=== PATIENT | female | born 1940 | race Caucasian/White ===

== ENCOUNTER → 2016-11-26 | Outpatient (CLI) | payer MEDICARE ==
[~2016-11-26] MED LIST: ASPI1TAB PO; COLA100C3 PO; CRES5TAB PO; LEVO50TA45 PO; LOSA100T36 PO; OMEGA XL PO; PANT40TA2 PO; PERC5TAB6 PO; TRIA37.5 PO; TYLE500T78 PO; [UNRECOGNIZED DRUG - CODE] PO; [UNRECOGNIZED DRUG - OTHER] PO
[2016-11-26 13:38] LABS: BASO % 0.4 % (0.0-1.0); EOS # 0.4 K/mm3 (0.0-0.50); EOS % 4.3 % (0.0-3.0); LARGE UNSTAINED CELL # 0.1 K/mm3 (0.0-0.4); LARGE UNSTAINED CELL % 1.5 % (0.0-4.0); LYMPH # 2.6 K/mm3 (1.5-4.5); LYMPH % 30.3 % (24.0-44.0); MEAN CORPUSCULAR HEMOGLOBIN 31.3 pg (27.0-33.0); MEAN CORPUSCULAR HGB CONC 34.4 g/dl (32.0-36.5); MEAN CORPUSCULAR VOLUME 90.8 fl (80.0-96.0); MONO # 0.5 K/mm3 (0.0-0.8); MONO % 5.7 % (0.0-5.0); NEUTROPHILS % 57.7 % (36.0-66.0); PLATELET COUNT, AUTOMATED 300 k/mm3 (150-450); RED CELL DISTRIBUTION WIDTH 13.3 % (11.5-14.5); WHITE BLOOD COUNT 8.7 K/mm3 (4.0-10.0)
[2016-11-26 13:52] LABS: ALBUMIN/GLOBULIN RATIO 1.33 (1.00-1.93); BILIRUBIN,TOTAL 0.7 MG/DL (0.2-1.0); CALCIUM LEVEL 9.1 MG/DL (8.8-10.2); CREATININE FOR GFR 1.25 MG/DL (0.55-1.02); FREE T4 1.01 NG/DL (0.76-1.46); GLOMERULAR FILTRATION RATE 44.6 (>39); POTASSIUM SERUM 3.9 MEQ/L (3.5-5.1)
[2016-11-26 15:51] LABS: FOLATE > 24.0 NG/ML; VITAMIN B12 LEVEL 691 PG/ML
== END ==
LOC: M SMT 09:21
PROVIDERS: ATTEND Family Medicine
DX: D64.9 Anemia, unspecified (principal); E03.9 Hypothyroidism, unspecified; I10 Essential (primary) hypertension; K21.9 Gastro-esophageal reflux disease without esophagitis; E78.00 Pure hypercholesterolemia, unspecified

== ENCOUNTER → 2016-12-17 | Outpatient (REF) | payer MEDICARE | LOC: M LAB REF 17:01 | PROVIDERS: ATTEND Physician Assistant Medical | DX: R10.30 Lower abdominal pain, unspecified (principal) ==

== ENCOUNTER → 2017-02-26 | Outpatient (CLI) | payer MEDICARE ==
[~2017-02-26] MED LIST changes: +AMLO5TAB2 PO; +CENTTAB PO; -COLA100C3 PO; +COLA100C5 PO; +INDA125TA PO; +LEVO75TA4 PO; +PERC5TAB12 PO; -PERC5TAB6 PO; +POTA10TA16 PO
[2017-02-26 17:44] LABS: FREE T4 0.98 NG/DL (0.76-1.46)
== END ==
LOC: M SMT 12:03
PROVIDERS: ATTEND Physician Assistant
DX: E03.9 Hypothyroidism, unspecified (principal)

== ENCOUNTER 2017-04-15 07:29 | Outpatient (CLI) | payer MEDICARE ==
[~2017-04-15] VITALS: Ht 152.4 cm; Wt 59.0 kg
[~2017-04-15 07:29] MED LIST changes: +LR 1,000 ML IV SCH
[2017-04-15] MEDS ORDERED: LIDOCAINE 2% INJ 100 MG/5 ML SDV (FOR ANES.) As Ordered ONE (08:26)
[2017-04-15] MEDS ORDERED: PROPOFOL 200 MG/20 ML VIAL As Ordered ONE (08:26)
[2017-04-15] MEDS ORDERED: ePHEDrine SULFATE 25 MG/5 ML(5MG/ML) SYRINGE As Ordered ONE (08:41)
--- NOTE | 2017-04-15 09:13 | ROOR ---
Patient Name: Courtney Chiu Procedure Date: 04/15/2017 8:23 AM Date of : 1940 Age: 77 Room: [facility] Gender: Female Note Status: Finalized Procedure: Colonoscopy Indications: High risk colon cancer surveillance: Personal history of non-advanced adenoma, Last colonoscopy: 2011 Providers: William Barnett MD Referring MD: Cinthia GRIMES DO Requesting Provider: Medicines: Monitored Anesthesia Care Complications: No immediate complications. Procedure: Pre-Anesthesia Assessment: - Prior to the procedure, a History and Physical was performed, and patient medications and allergies were reviewed. The patient is competent. The risks and benefits of the procedure and the sedation options and risks were discussed with the patient. All questions were answered and informed consent was obtained. Patient identification and proposed procedure were verified by the physician, the nurse and the anesthesiologist in the procedure room. Mental Status Examination: alert and oriented. Airway Examination: normal oropharyngeal airway and neck mobility. CV Examination: regular rate and rhythm. Prophylactic Antibiotics: The patient does not require prophylactic antibiotics. Prior Anticoagulants: The patient has taken no previous anticoagulant or antiplatelet agents. ASA Grade Assessment: II - A patient with mild systemic disease. After reviewing the risks and benefits, the patient was deemed in satisfactory condition to undergo the procedure. The anesthesia plan was to use monitored anesthesia care (MAC). Immediately prior to administration of medications, the patient was re-assessed for adequacy to receive sedatives. The heart rate, respiratory rate, oxygen saturations, blood pressure, adequacy of pulmonary ventilation, and response to care were monitored throughout the procedure. The physical status of the patient was re-assessed after the procedure. The Colonoscope was introduced through the anus and advanced to the cecum, identified by appendiceal orifice and ileocecal valve. The colonoscopy was performed without difficulty. The patient tolerated the procedure well. The quality of the bowel preparation was excellent. Findings: The perianal and digital rectal examinations were normal. A 4 mm polyp was found at 25 cm proximal to the anus. The polyp was sessile. The polyp was removed with a piecemeal technique using a hot biopsy forceps. Resection and retrieval were complete. The exam was otherwise without abnormality. Impression: - One 4 mm polyp at 25 cm proximal to the anus, removed piecemeal using a hot biopsy forceps. Resected and retrieved. - The examination was otherwise normal. Recommendation: - Discharge patient to home. - Resume previous diet. - Continue present medications. - Await pathology results. - Telephone endoscopist for pathology results in 1 week. William Barnett MD 04/15/2017 9:12:56 AM Number of Addenda: 0 Note Initiated On: 04/15/2017 8:23 AM Estimated Blood Loss: Estimated blood loss: none.
[2017-04-15 09:36] VITALS: BP 117/65
== END 2017-04-15 09:40 | disposition home or self-care (01) ==
LOC: M OPP 07:29
PROVIDERS: ATTEND Surgery
DX: Z12.11 Encounter for screening for malignant neoplasm of colon (principal); Z86.010 Personal history of colon polyps; D12.5 Benign neoplasm of sigmoid colon; R00.2 Palpitations; I10 Essential (primary) hypertension; E03.9 Hypothyroidism, unspecified; E78.5 Hyperlipidemia, unspecified; R12 Heartburn; K21.9 Gastro-esophageal reflux disease without esophagitis; M19.90 Unspecified osteoarthritis, unspecified site; M48.00 Spinal stenosis, site unspecified; M41.9 Scoliosis, unspecified; G43.909 Migraine, unspecified, not intractable, without status migrainosus; R06.83 Snoring; R31.9 Hematuria, unspecified; Z87.891 Personal history of nicotine dependence; Z79.82 Long term (current) use of aspirin; Z79.899 Other long term (current) drug therapy; Z80.0 Family history of malignant neoplasm of digestive organs

== ENCOUNTER → 2017-08-28 | Outpatient (REF) | payer MEDICARE ==
[2017-08-28 15:14] LABS: APPEARANCE, URINE HAZY (CLEAR); BACTERIA, URINE AUTO NEGATIVE (NEGATIVE); BILIRUBIN, URINE AUTO NEGATIVE (NEGATIVE); BLOOD, URINE BLOOD NEGATIVE (NEGATIVE); COLOR, URINE AMBER (YELLOW); GLUCOSE, URINE (UA) AUTO NEGATIVE (NEGATIVE); KETONE, URINE AUTO NEGATIVE (NEGATIVE); LEUKOCYTE ESTERASE, URINE AUTO NEGATIVE (NEGATIVE); MUCUS, URINE SMALL (NEGATIVE); NITRITE, URINE AUTO NEGATIVE (NEGATIVE); PROTEIN, URINE AUTO NEGATIVE (NEGATIVE); RBC, URINE AUTO 9 /HPF (0-3); SPECIFIC GRAVITY URINE AUTO 1.023 (1.002-1.035); SQUAMOUS EPITHELIAL CELL UR AU 0 /HPF (0-6); UROBILINOGEN, URINE AUTO 0.2 mg/dL (0.0-2.0); WBC, URINE AUTO 1 /HPF (0-3)
== END ==
LOC: M LAB REF 13:24
DX: R30.0 Dysuria (principal); Z00.01 Encounter for general adult medical examination with abnormal findings
CPT/HCPCS: 81001

== ENCOUNTER 2017-11-23 23:08 | Observation (INO) | payer MEDICARE ==
[2017-11-23] MEDS: MECLIZINE 25 MG TABLET PO (23:57)
[2017-11-24 00:16] LABS: BASO # 0.1 10^3/uL (0.0-0.2); BASO % 0.6 % (0.0-1.0); EOS # 0.3 10^3/uL (0.0-0.50); EOS % 3.4 % (0.0-3.0); HEMATOCRIT 36.5 % (36.0-47.0); HEMOGLOBIN 12.1 g/dl (12.0-15.5); IMMATURE GRANULOCYTE % 0.1 % (0-3.0); LYMPH # 2.2 10^3/uL (1.5-4.5); LYMPH % 24.9 % (24.0-44.0); MEAN CORPUSCULAR HEMOGLOBIN 29.9 pg (27.0-33.0); MEAN CORPUSCULAR HGB CONC 33.2 g/dl (32.0-36.5); MEAN CORPUSCULAR VOLUME 90.1 fl (80.0-96.0); MONO # 0.7 10^3/uL (0.0-0.8); MONO % 7.6 % (0.0-5.0); NEUTROPHILS # 5.6 10^3/uL (1.8-7.7); NEUTROPHILS % 63.4 % (36.0-66.0); PLATELET COUNT, AUTOMATED 256 10^3/uL (150-450); RED BLOOD COUNT 4.05 10^6/uL (4.00-5.40); RED CELL DISTRIBUTION WIDTH 12.6 % (11.5-14.5); WHITE BLOOD COUNT 8.9 10^3/uL (4.0-10.0)
[2017-11-24 00:27] LABS: INR 0.94; PROTHROMBIN TIME 12.6 SECONDS (12.4-14.5)
[2017-11-24 00:28] LABS: PARTIAL THROMBOPLASTIN TIME 34.8 SECONDS (26.8-37.9)
[2017-11-24 00:49] LABS: ALT/SGPT 25 U/L (12-78); ANION GAP 8 MEQ/L (8-16); AST/SGOT 24 U/L (7-37); BILIRUBIN,DIRECT < 0.1 MG/DL (0.0-0.2); BLOOD UREA NITROGEN 20 MG/DL (7-18); CALCIUM LEVEL 9.2 MG/DL (8.8-10.2); CARBON DIOXIDE LEVEL 31 MEQ/L (21-32); CHLORIDE LEVEL 103 MEQ/L (98-107); CREATININE FOR GFR 0.96 MG/DL (0.55-1.30); GLOMERULAR FILTRATION RATE > 60.0 (>39); GLUCOSE, FASTING 158 MG/DL (70-100); PHOSPHORUS LEVEL 3.2 MG/DL (2.5-4.9); POTASSIUM SERUM 3.6 MEQ/L (3.5-5.1); SODIUM LEVEL 142 MEQ/L (136-145); TROPONIN I 0.02 NG/ML (< 0.10)
[2017-11-24 00:54] LABS: ALBUMIN/GLOBULIN RATIO 1.29 (1.00-1.93); ALKALINE PHOSPHATASE 68 U/L (45-117); BILIRUBIN,TOTAL 0.3 MG/DL (0.2-1.0); CK-MB VALUE MASS < 1.0 NG/ML (<3.6); CPK CREATINE PHOSPHOKINASE 121 U/L (26-192); FREE T4 0.93 NG/DL (0.76-1.46); MB/CK RELATIVE INDEX 0.82 (< OR =4); TOTAL PROTEIN 7.1 GM/DL (6.4-8.2)
[2017-11-24] MEDS: MECLIZINE 25 MG TABLET PO (01:45)
[2017-11-24] MEDS: LORazepam 2 MG/ML VIAL (J2060) IV (04:18)
[2017-11-24] MEDS: DIVALPROEX 500MG *ER* TAB PO ×2 (05:08→09:00)
[2017-11-24] MEDS ORDERED: ONDANSETRON 4MG/2ML VIAL (J2405) IV (05:45)
[2017-11-24] MEDS ORDERED: MECLIZINE 25 MG TABLET PO (05:45)
[2017-11-24] MEDS ORDERED: LORazepam 2 MG/ML VIAL (J2060) IV (05:45)
[2017-11-24] MEDS: LEVOTHYROXINE 50MCG TABLET (0.05MG) PO (06:30)
[2017-11-24 06:34] LABS: BASO % 0.4 % (0.0-1.0); EOS # 0.2 10^3/uL (0.0-0.50); EOS % 2.6 % (0.0-3.0); HEMATOCRIT 35.9 % (36.0-47.0); HEMOGLOBIN 12.2 g/dl (12.0-15.5); IMMATURE GRANULOCYTE % 0.1 % (0-3.0); LYMPH # 3.1 10^3/uL (1.5-4.5); MEAN CORPUSCULAR VOLUME 88.4 fl (80.0-96.0); MONO # 0.7 10^3/uL (0.0-0.8); MONO % 7.4 % (0.0-5.0); NEUTROPHILS # 5.3 10^3/uL (1.8-7.7); NEUTROPHILS % 56.5 % (36.0-66.0); PLATELET COUNT, AUTOMATED 266 10^3/uL (150-450); RED BLOOD COUNT 4.06 10^6/uL (4.00-5.40); RED CELL DISTRIBUTION WIDTH 12.6 % (11.5-14.5); WHITE BLOOD COUNT 9.4 10^3/uL (4.0-10.0)
[2017-11-24 06:56] LABS: ANION GAP 7 MEQ/L (8-16); BLOOD UREA NITROGEN 17 MG/DL (7-18); CALCIUM LEVEL 9.4 MG/DL (8.8-10.2); CARBON DIOXIDE LEVEL 30 MEQ/L (21-32); CHLORIDE LEVEL 106 MEQ/L (98-107); CREATININE FOR GFR 0.85 MG/DL (0.55-1.30); GLOMERULAR FILTRATION RATE > 60.0 (>39); GLUCOSE, FASTING 90 MG/DL (70-100); POTASSIUM SERUM 3.4 MEQ/L (3.5-5.1); SODIUM LEVEL 143 MEQ/L (136-145)
[2017-11-24] MEDS: amLODIPine 5 MG TAB PO (09:07)
[2017-11-24] MEDS: LOSARTAN 50 MG TAB PO (09:08)
[2017-11-24] MEDS: POTASSIUM CHLORIDE 10 MEQ SR TABLET PO (09:08)
[2017-11-24] MEDS: DOCUSATE SODIUM 100 MG CAP PO (09:09)
[2017-11-24] MEDS: PANTOPRAZOLE 40MG TAB (PROTONIX) PO (09:09)
[2017-11-24] MEDS: INDAPAMIDE 1.25MG TABLET PO (09:09)
[2017-11-24] MEDS: ROSUVASTATIN 10 MG TAB (CRESTOR) PO (20:57)
[2017-11-24] MEDS: ASPIRIN 81 MG ENTERIC TAB PO (20:57)
[2017-11-25 04:25] LABS: BASO # 0.1 10^3/uL (0.0-0.2); BASO % 0.9 % (0.0-1.0); EOS # 0.7 10^3/uL (0.0-0.50); EOS % 8.1 % (0.0-3.0); HEMATOCRIT 36.2 % (36.0-47.0); HEMOGLOBIN 12.2 g/dl (12.0-15.5); IMMATURE GRANULOCYTE % 0.2 % (0-3.0); LYMPH # 3.4 10^3/uL (1.5-4.5); LYMPH % 41.8 % (24.0-44.0); MEAN CORPUSCULAR HEMOGLOBIN 29.9 pg (27.0-33.0); MEAN CORPUSCULAR HGB CONC 33.7 g/dl (32.0-36.5); MEAN CORPUSCULAR VOLUME 88.7 fl (80.0-96.0); MONO # 0.8 10^3/uL (0.0-0.8); MONO % 9.4 % (0.0-5.0); NEUTROPHILS # 3.2 10^3/uL (1.8-7.7); NEUTROPHILS % 39.6 % (36.0-66.0); PLATELET COUNT, AUTOMATED 280 10^3/uL (150-450); RED BLOOD COUNT 4.08 10^6/uL (4.00-5.40); RED CELL DISTRIBUTION WIDTH 12.8 % (11.5-14.5)
[2017-11-25 04:37] LABS: ANION GAP 7 MEQ/L (8-16); BLOOD UREA NITROGEN 15 MG/DL (7-18); CALCIUM LEVEL 8.8 MG/DL (8.8-10.2); CARBON DIOXIDE LEVEL 32 MEQ/L (21-32); CHLORIDE LEVEL 104 MEQ/L (98-107); CREATININE FOR GFR 1.03 MG/DL (0.55-1.30); GLOMERULAR FILTRATION RATE 55.6 (>39); GLUCOSE, FASTING 113 MG/DL (70-100); POTASSIUM SERUM 3.4 MEQ/L (3.5-5.1); SODIUM LEVEL 143 MEQ/L (136-145)
[2017-11-25] MEDS: LEVOTHYROXINE 75MCG TABLET (0.075MG) PO (06:06)
[2017-11-25] MEDS: DOCUSATE SODIUM 100 MG CAP PO (08:51)
[2017-11-25] MEDS: amLODIPine 5 MG TAB PO (08:51)
[2017-11-25] MEDS: INDAPAMIDE 1.25MG TABLET PO (08:51)
[2017-11-25] MEDS: POTASSIUM CHLORIDE 10 MEQ SR TABLET PO (08:52)
[2017-11-25] MEDS: PANTOPRAZOLE 40MG TAB (PROTONIX) PO (08:52)
[2017-11-25] MEDS ORDERED: LOSARTAN 50 MG TAB PO (21:00)
== END 2017-11-25 11:19 | disposition home or self-care (01) ==
LOC: M ED 23:08 → M ED INP 23:09 → M ICU 11-24 07:46
DX: R42 Dizziness and giddiness (principal); I10 Essential (primary) hypertension; E78.00 Pure hypercholesterolemia, unspecified; K21.9 Gastro-esophageal reflux disease without esophagitis; E03.9 Hypothyroidism, unspecified; I65.23 Occlusion and stenosis of bilateral carotid arteries; Z79.82 Long term (current) use of aspirin; Z79.899 Other long term (current) drug therapy; Z87.891 Personal history of nicotine dependence
CPT/HCPCS: J2060

== ENCOUNTER 2018-03-11 19:52 | Emergency (ER) | payer MEDICARE ==
[2018-03-11 22:22] LABS: BASO # 0.1 10^3/uL (0.0-0.2); BASO % 0.4 % (0.0-1.0); EOS # 0.2 10^3/uL (0.0-0.50); EOS % 1.8 % (0.0-3.0); HEMATOCRIT 35.8 % (36.0-47.0); HEMOGLOBIN 12.2 g/dl (12.0-15.5); IMMATURE GRANULOCYTE % 0.3 % (0-3.0); LYMPH # 3.4 10^3/uL (1.5-4.5); LYMPH % 28.9 % (24.0-44.0); MEAN CORPUSCULAR HGB CONC 34.1 g/dl (32.0-36.5); MEAN CORPUSCULAR VOLUME 88.2 fl (80.0-96.0); MONO # 0.9 10^3/uL (0.0-0.8); MONO % 7.7 % (0.0-5.0); NEUTROPHILS # 7.1 10^3/uL (1.8-7.7); NEUTROPHILS % 60.9 % (36.0-66.0); PLATELET COUNT, AUTOMATED 308 10^3/uL (150-450); RED BLOOD COUNT 4.06 10^6/uL (4.00-5.40); RED CELL DISTRIBUTION WIDTH 12.7 % (11.5-14.5); WHITE BLOOD COUNT 11.6 10^3/uL (4.0-10.0)
[2018-03-11 22:39] LABS: D-DIMER QUANT 404.4 ng/ml (<500)
[2018-03-11 22:46] LABS: ALBUMIN 4.2 GM/DL (3.2-5.2); ALBUMIN/GLOBULIN RATIO 1.27 (1.00-1.93); ALKALINE PHOSPHATASE 65 U/L (45-117); ALT/SGPT 28 U/L (12-78); ANION GAP 9 MEQ/L (8-16); AST/SGOT 21 U/L (7-37); BILIRUBIN,DIRECT 0.1 MG/DL (0.0-0.2); BILIRUBIN,TOTAL 0.5 MG/DL (0.2-1.0); BLOOD UREA NITROGEN 15 MG/DL (7-18); CALCIUM LEVEL 9.7 MG/DL (8.8-10.2); CARBON DIOXIDE LEVEL 31 MEQ/L (21-32); CHLORIDE LEVEL 99 MEQ/L (98-107); CREATININE FOR GFR 0.96 MG/DL (0.55-1.30); GLOMERULAR FILTRATION RATE > 60.0 (>39); GLUCOSE, FASTING 90 MG/DL (70-100); NT-PRO BNP 170 PG/ML (<450); POTASSIUM SERUM 3.4 MEQ/L (3.5-5.1); SODIUM LEVEL 139 MEQ/L (136-145); TOTAL PROTEIN 7.5 GM/DL (6.4-8.2)
== END 2018-03-11 23:18 | disposition home or self-care (01) ==
LOC: M ED 19:52
DX: I10 Essential (primary) hypertension (principal); E87.6 Hypokalemia; E78.5 Hyperlipidemia, unspecified; E03.9 Hypothyroidism, unspecified; K21.9 Gastro-esophageal reflux disease without esophagitis; Z79.82 Long term (current) use of aspirin; Z87.891 Personal history of nicotine dependence
CPT/HCPCS: 93005

== ENCOUNTER → 2018-04-29 | Outpatient (CLI) | payer MEDICARE | LOC: M RAD 10:42 | DX: M48.02 Spinal stenosis, cervical region (principal); M47.812 Spondylosis without myelopathy or radiculopathy, cervical region; M79.1 Myalgia; M54.12 Radiculopathy, cervical region; M51.37 Other intervertebral disc degeneration, lumbosacral region; M46.1 Sacroiliitis, not elsewhere classified; M48.061 Spinal stenosis, lumbar region without neurogenic claudication; M54.16 Radiculopathy, lumbar region; M47.817 Spondylosis without myelopathy or radiculopathy, lumbosacral region | CPT/HCPCS: 72141 ==

== ENCOUNTER → 2018-07-02 | Outpatient (CLI) | payer MEDICARE ==
[2018-07-02 13:49] LABS: BASO # 0.1 10^3/uL (0.0-0.2); BASO % 0.6 % (0.0-1.0); EOS # 0.2 10^3/uL (0.0-0.50); HEMATOCRIT 39.4 % (36.0-47.0); HEMOGLOBIN 12.8 g/dl (12.0-15.5); IMMATURE GRANULOCYTE % 0.4 % (0-3.0); LYMPH # 3.2 10^3/uL (1.5-4.5); LYMPH % 29.8 % (24.0-44.0); MEAN CORPUSCULAR HEMOGLOBIN 30.2 pg (27.0-33.0); MEAN CORPUSCULAR HGB CONC 32.5 g/dl (32.0-36.5); MEAN CORPUSCULAR VOLUME 92.9 fl (80.0-96.0); MONO # 0.8 10^3/uL (0.0-0.8); MONO % 7.5 % (0.0-5.0); NEUTROPHILS # 6.5 10^3/uL (1.8-7.7); NEUTROPHILS % 59.7 % (36.0-66.0); PLATELET COUNT, AUTOMATED 322 10^3/uL (150-450); RED BLOOD COUNT 4.24 10^6/uL (4.00-5.40); RED CELL DISTRIBUTION WIDTH 13.1 % (11.5-14.5); WHITE BLOOD COUNT 10.9 10^3/uL (4.0-10.0)
[2018-07-02 14:21] LABS: ANION GAP 10 MEQ/L (8-16); BLOOD UREA NITROGEN 22 MG/DL (7-18); CALCIUM LEVEL 9.5 MG/DL (8.8-10.2); CARBON DIOXIDE LEVEL 29 MEQ/L (21-32); CHLORIDE LEVEL 102 MEQ/L (98-107); CHOLESTEROL LEVEL 178 MG/DL (<200); CHOLESTEROL RISK RATIO 3.358 (<5); CREATININE FOR GFR 0.95 MG/DL (0.55-1.30); FREE T4 1.19 NG/DL (0.76-1.46); GLOMERULAR FILTRATION RATE > 60.0 (>39); GLUCOSE, FASTING 83 MG/DL (70-100); HDL CHOLESTEROL 53 MG/DL (>40); LDL CHOLESTEROL 107 MG/DL (<100); NON-HDL-C 125 MG/DL; POTASSIUM SERUM 4.2 MEQ/L (3.5-5.1); SODIUM LEVEL 141 MEQ/L (136-145); TRIGLYCERIDES LEVEL 91 MG/DL (<150)
== END ==
LOC: M SMT 09:07
DX: I10 Essential (primary) hypertension (principal); E78.5 Hyperlipidemia, unspecified; E03.9 Hypothyroidism, unspecified
CPT/HCPCS: 84443

== ENCOUNTER → 2018-09-25 | Outpatient (CLI) | payer MEDICARE ==
[~2018-09-25] MED LIST changes: +AMLO10TA5; -AMLO5TAB2 PO; +AMLO5TAB6 PO; -LOSA100T36 PO; +LOSA100T50 PO; -LR 1,000 ML IV SCH; +MECL-68 PO; -PANT40TA2 PO; +PANT40TA3 PO; +PROBCAP14 PO; +ULTIMATE FLORA PO
[2018-09-25 14:22] LABS: BASO # 0.1 10^3/uL (0.0-0.2); BASO % 0.8 % (0.0-1.0); EOS # 0.3 10^3/uL (0.0-0.50); EOS % 4.4 % (0.0-3.0); HEMATOCRIT 38.6 % (36.0-47.0); HEMOGLOBIN 12.7 g/dl (12.0-15.5); LYMPH # 2.5 10^3/uL (1.5-4.5); LYMPH % 32.1 % (24.0-44.0); MEAN CORPUSCULAR HEMOGLOBIN 29.9 pg (27.0-33.0); MEAN CORPUSCULAR HGB CONC 32.9 g/dl (32.0-36.5); MEAN CORPUSCULAR VOLUME 90.8 fl (80.0-96.0); MONO # 0.7 10^3/uL (0.0-0.8); MONO % 8.9 % (0.0-5.0); NEUTROPHILS # 4.2 10^3/uL (1.8-7.7); NEUTROPHILS % 53.7 % (36.0-66.0); PLATELET COUNT, AUTOMATED 328 10^3/uL (150-450); RED BLOOD COUNT 4.25 10^6/uL (4.00-5.40); WHITE BLOOD COUNT 7.8 10^3/uL (4.0-10.0)
[2018-09-25 14:40] LABS: ALBUMIN 4.2 GM/DL (3.2-5.2); ALT/SGPT 24 U/L (12-78); BILIRUBIN,TOTAL 0.7 MG/DL (0.2-1.0); BLOOD UREA NITROGEN 23 MG/DL (7-18); CALCIUM LEVEL 9.3 MG/DL (8.8-10.2); CARBON DIOXIDE LEVEL 31 MEQ/L (21-32); CHLORIDE LEVEL 102 MEQ/L (98-107); CHOLESTEROL LEVEL 176 MG/DL (<200); CHOLESTEROL RISK RATIO 3.384 (<5); CREATININE FOR GFR 0.92 MG/DL (0.55-1.30); FREE T4 1.26 NG/DL (0.76-1.46); GLOMERULAR FILTRATION RATE > 60.0 (>39); GLUCOSE, FASTING 99 MG/DL (70-100); HDL CHOLESTEROL 52 MG/DL (>40); LDL CHOLESTEROL 109 MG/DL (<100); NON-HDL-C 124 MG/DL; POTASSIUM SERUM 4.2 MEQ/L (3.5-5.1); SODIUM LEVEL 138 MEQ/L (136-145); TRIGLYCERIDES LEVEL 73 MG/DL (<150)
== END ==
LOC: M SMT 09:36
PROVIDERS: ATTEND Family Medicine
DX: K21.9 Gastro-esophageal reflux disease without esophagitis (principal); E03.9 Hypothyroidism, unspecified; E78.5 Hyperlipidemia, unspecified; I10 Essential (primary) hypertension

== ENCOUNTER → 2019-04-01 | Outpatient (CLI) | payer MEDICARE ==
[~2019-04-01] MED LIST changes: -ASPI1TAB PO; +ASPI81TA26 PO; -MECL-68 PO; +MECL1TAB31 PO
[2019-04-01 10:13] LABS: BASO # 0.1 10^3/uL (0.0-0.2); BASO % 0.6 % (0.0-1.0); EOS # 0.3 10^3/uL (0.0-0.50); EOS % 3.8 % (0.0-3.0); HEMATOCRIT 37.9 % (36.0-47.0); HEMOGLOBIN 12.7 g/dl (12.0-15.5); LYMPH # 2.3 10^3/uL (1.5-4.5); LYMPH % 27.2 % (24.0-44.0); MEAN CORPUSCULAR HEMOGLOBIN 30.4 pg (27.0-33.0); MEAN CORPUSCULAR HGB CONC 33.5 g/dl (32.0-36.5); MEAN CORPUSCULAR VOLUME 90.7 fl (80.0-96.0); MONO # 0.8 10^3/uL (0.0-0.8); MONO % 9.4 % (0.0-5.0); NEUTROPHILS % 58.8 % (36.0-66.0); PLATELET COUNT, AUTOMATED 278 10^3/uL (150-450); RED BLOOD COUNT 4.18 10^6/uL (4.00-5.40); WHITE BLOOD COUNT 8.5 10^3/uL (4.0-10.0)
[2019-04-01 10:51] LABS: ALBUMIN 3.9 GM/DL (3.2-5.2); ALT/SGPT 47 U/L (12-78); BILIRUBIN,TOTAL 0.7 MG/DL (0.2-1.0); BLOOD UREA NITROGEN 19 MG/DL (7-18); CALCIUM LEVEL 9.2 MG/DL (8.8-10.2); CARBON DIOXIDE LEVEL 33 MEQ/L (21-32); CHLORIDE LEVEL 102 MEQ/L (98-107); CHOLESTEROL LEVEL 165 MG/DL (<200); CHOLESTEROL RISK RATIO 2.323 (<5); CREATININE FOR GFR 0.95 MG/DL (0.55-1.30); GLOMERULAR FILTRATION RATE > 60.0 (>39); GLUCOSE, FASTING 93 MG/DL (70-100); HDL CHOLESTEROL 71 MG/DL (>40); LDL CHOLESTEROL 83 MG/DL (<100); NON-HDL-C 94 MG/DL; POTASSIUM SERUM 4.1 MEQ/L (3.5-5.1); SODIUM LEVEL 140 MEQ/L (136-145); TOTAL PROTEIN 6.7 GM/DL (6.4-8.2); TRIGLYCERIDES LEVEL 54 MG/DL (<150)
== END ==
LOC: M SMT 08:27
PROVIDERS: ATTEND Physician Assistant
DX: Z00.00 Encounter for general adult medical examination without abnormal findings (principal); E03.9 Hypothyroidism, unspecified; Z13.0 Encounter for screening for diseases of the blood and blood-forming organs and certain disorders involving the immune mechanism; E78.5 Hyperlipidemia, unspecified; I10 Essential (primary) hypertension

== ENCOUNTER → 2019-05-06 | Outpatient (CLI) | payer MEDICARE ==
[~2019-05-06] MED LIST changes: +MECL-68 PO; -MECL1TAB31 PO
[2019-05-06 17:59] LABS: BASO # 0.1 10^3/uL (0.0-0.2); BASO % 0.6 % (0.0-1.0); EOS # 0.3 10^3/uL (0.0-0.5); EOS % 3.5 % (0.0-3.0); HEMATOCRIT 37.7 % (36.0-47.0); HEMOGLOBIN 12.5 g/dl (12.0-15.5); LYMPH # 3.3 10^3/uL (1.5-5.0); LYMPH % 38.2 % (24.0-44.0); MEAN CORPUSCULAR HEMOGLOBIN 30.7 pg (27.0-33.0); MEAN CORPUSCULAR HGB CONC 33.2 g/dl (32.0-36.5); MEAN CORPUSCULAR VOLUME 92.6 fl (80.0-96.0); MONO # 0.7 10^3/uL (0.0-0.8); MONO % 8.7 % (0.0-5.0); NEUTROPHILS # 4.2 10^3/uL (1.5-8.5); NEUTROPHILS % 48.8 % (36.0-66.0); PLATELET COUNT, AUTOMATED 287 10^3/uL (150-450); RED BLOOD COUNT 4.07 10^6/uL (4.00-5.40); WHITE BLOOD COUNT 8.6 10^3/uL (4.0-10.0)
[2019-05-06 18:10] LABS: ALBUMIN 4.2 GM/DL (3.2-5.2); BILIRUBIN,TOTAL 0.4 MG/DL (0.2-1.0); CALCIUM LEVEL 9.9 MG/DL (8.8-10.2); CREATININE FOR GFR 0.99 MG/DL (0.55-1.30); FREE T4 1.19 NG/DL (0.76-1.46); GLOMERULAR FILTRATION RATE 57.9 (>39); POTASSIUM SERUM 3.7 MEQ/L (3.5-5.1); THYROID STIMULATING HORMONE 0.947 uIU/ML (0.358-3.740); TOTAL PROTEIN 7.3 GM/DL (6.4-8.2)
== END ==
LOC: M SMT 14:37
PROVIDERS: ATTEND Family Medicine
DX: R42 Dizziness and giddiness (principal)

== ENCOUNTER → 2019-05-11 | Outpatient (REF) | payer MEDICARE ==
[2019-05-11 18:22] LABS: BLOOD UREA NITROGEN 25 MG/DL (7-18); CREATININE FOR GFR 0.94 MG/DL (0.55-1.30); GLOMERULAR FILTRATION RATE > 60.0 (>39)
== END ==
LOC: M LABNEURO 17:45
PROVIDERS: ATTEND Psychiatry & Neurology Neurology
DX: I10 Essential (primary) hypertension (principal)

== ENCOUNTER → 2019-07-07 | Outpatient (CLI) | payer MEDICARE ==
[2019-07-07 16:02] LABS: ALT/SGPT 48 U/L (12-78); BILIRUBIN,TOTAL 0.4 MG/DL (0.2-1.0); BLOOD UREA NITROGEN 19 MG/DL (7-18); CALCIUM LEVEL 9.3 MG/DL (8.8-10.2); CARBON DIOXIDE LEVEL 32 MEQ/L (21-32); CHLORIDE LEVEL 104 MEQ/L (98-107); CHOLESTEROL LEVEL 198 MG/DL (<200); CREATININE FOR GFR 0.88 MG/DL (0.55-1.30); GLOMERULAR FILTRATION RATE > 60.0 (>39); GLUCOSE, FASTING 93 MG/DL (70-100); HDL CHOLESTEROL 75 MG/DL (>40); LDL CHOLESTEROL 111 MG/DL (<100); NON-HDL-C 123 MG/DL; POTASSIUM SERUM 3.9 MEQ/L (3.5-5.1); SODIUM LEVEL 141 MEQ/L (136-145); TOTAL PROTEIN 7.4 GM/DL (6.4-8.2); TRIGLYCERIDES LEVEL 60 MG/DL (<150)
[2019-07-07 16:08] LABS: BASO % 0.3 % (0.0-1.0); EOS % 0.3 % (0.0-3.0); HEMATOCRIT 37.3 % (36.0-47.0); HEMOGLOBIN 12.1 g/dl (12.0-15.5); LYMPH # 2.7 10^3/uL (1.5-5.0); LYMPH % 24.3 % (24.0-44.0); MEAN CORPUSCULAR HEMOGLOBIN 30.1 pg (27.0-33.0); MEAN CORPUSCULAR HGB CONC 32.4 g/dl (32.0-36.5); MEAN CORPUSCULAR VOLUME 92.8 fl (80.0-96.0); MONO # 0.6 10^3/uL (0.0-0.8); MONO % 5.8 % (0.0-5.0); NEUTROPHILS # 7.7 10^3/uL (1.5-8.5); NEUTROPHILS % 68.9 % (36.0-66.0); PLATELET COUNT, AUTOMATED 281 10^3/uL (150-450); RED BLOOD COUNT 4.02 10^6/uL (4.00-5.40); WHITE BLOOD COUNT 11.1 10^3/uL (4.0-10.0)
== END ==
LOC: M PLALAB 09:14
PROVIDERS: ATTEND Family Medicine
DX: I10 Essential (primary) hypertension (principal); E78.5 Hyperlipidemia, unspecified; E03.9 Hypothyroidism, unspecified; K21.9 Gastro-esophageal reflux disease without esophagitis

== ENCOUNTER → 2019-07-08 | Outpatient (CLI) | payer MEDICARE ==
--- NOTE | 2019-07-08 10:11 | REP ---
CAROTID ULTRASOUND: Real-time ultrasound evaluation and duplex Doppler interrogation of the extracranial carotid vasculature is performed and compared to a prior study of 11/24/2017. There is a moderate degree of plaquing in both carotid bulbs extending into the internal and external carotid arteries bilaterally. The findings are worse on the left than on the right with shadowing calcific plaque seen in the left carotid bulb. There is elevated peak systolic velocity in the left internal carotid artery with elevated ICA to CCA ratio, compatible with stenosis 60-79%. This the same range as on the prior study but the velocity has increased since that exam. Normal flow velocities are seen in the right internal carotid artery without duplex Doppler sonographic evidence of significant stenosis. There is normal direction of flow in both vertebral arteries. RIGHT LEFT Peak systolic velocity ICA 87.0 cm/s 168.0 cm/s End diastolic velocity ICA 28.5 cm/s 45.1 cm/s Peak systolic velocity CCA 99.4 cm/s 87.5 cm/s Peak systolic velocity ECA 62.9 cm/s 180 cm/s ICA/CCA ratio 1.14 2.42 IMPRESSION: Moderate degree of partial calcified plaque in both carotid bulbs and internal carotid arteries, more significant on the left than the right. There are findings compatible with stenosis of left ICA 60-79%, similar range was noted on prior study of 11/24/2017, but the peak systolic velocity in the left internal carotid artery has increased since that prior exam from 126.6 cm/s to 168.0 cm/s. Electronically Signed by Phan Edmonds MD 07/08/2019 12:47 P
== END ==
LOC: M RAD 08:39
PROVIDERS: ATTEND Surgery Vascular Surgery
DX: I65.23 Occlusion and stenosis of bilateral carotid arteries (principal)

== ENCOUNTER → 2019-09-27 | Outpatient (CLI) | payer MEDICARE ==
[~2019-09-27] MED LIST changes: -MECL-68 PO; +MECL1TAB31 PO
[2019-09-27 12:11] LABS: BASO % 0.6 % (0.0-1.0); EOS # 0.2 10^3/uL (0.0-0.5); EOS % 2.5 % (0.0-3.0); HEMOGLOBIN 12.2 g/dl (12.0-15.5); LYMPH # 1.9 10^3/uL (1.5-5.0); LYMPH % 27.4 % (24.0-44.0); MEAN CORPUSCULAR HEMOGLOBIN 30.1 pg (27.0-33.0); MEAN CORPUSCULAR VOLUME 91.4 fl (80.0-96.0); MONO # 0.7 10^3/uL (0.0-0.8); MONO % 10.3 % (0.0-5.0); NEUTROPHILS # 4.2 10^3/uL (1.5-8.5); NEUTROPHILS % 58.9 % (36.0-66.0); PLATELET COUNT, AUTOMATED 303 10^3/uL (150-450); RED BLOOD COUNT 4.05 10^6/uL (4.00-5.40); WHITE BLOOD COUNT 7.1 10^3/uL (4.0-10.0)
[2019-09-27 12:49] LABS: ALT/SGPT 26 U/L (12-78); BILIRUBIN,TOTAL 0.6 MG/DL (0.2-1.0); BLOOD UREA NITROGEN 13 MG/DL (7-18); CALCIUM LEVEL 9.4 MG/DL (8.8-10.2); CARBON DIOXIDE LEVEL 33 MEQ/L (21-32); CHLORIDE LEVEL 104 MEQ/L (98-107); CREATININE FOR GFR 0.76 MG/DL (0.55-1.30); GLOMERULAR FILTRATION RATE > 60.0 (>39); GLUCOSE, FASTING 91 MG/DL (70-100); POTASSIUM SERUM 3.9 MEQ/L (3.5-5.1); SODIUM LEVEL 141 MEQ/L (136-145)
[2019-09-27 12:50] LABS: TOTAL 25(OH) VITAMIN D 34.9 NG/ML (30.0-100.0)
== END ==
LOC: M PLALAB 08:25
PROVIDERS: ATTEND Physician Assistant
DX: E03.9 Hypothyroidism, unspecified (principal)

== ENCOUNTER → 2019-12-14 | Outpatient (CLI) | payer MEDICARE ==
[2019-12-14 14:03] LABS: BASO # 0.1 10^3/uL (0.0-0.2); BASO % 0.7 % (0.0-1.0); EOS # 0.3 10^3/uL (0.0-0.5); EOS % 3.7 % (0.0-3.0); HEMATOCRIT 36.2 % (36.0-47.0); HEMOGLOBIN 11.7 g/dl (12.0-15.5); LYMPH # 2.6 10^3/uL (1.5-5.0); LYMPH % 34.8 % (24.0-44.0); MEAN CORPUSCULAR HEMOGLOBIN 29.5 pg (27.0-33.0); MEAN CORPUSCULAR HGB CONC 32.3 g/dl (32.0-36.5); MEAN CORPUSCULAR VOLUME 91.4 fl (80.0-96.0); MONO # 0.8 10^3/uL (0.0-0.8); MONO % 9.9 % (0.0-5.0); NEUTROPHILS # 3.9 10^3/uL (1.5-8.5); NEUTROPHILS % 50.8 % (36.0-66.0); PLATELET COUNT, AUTOMATED 272 10^3/uL (150-450); RED BLOOD COUNT 3.96 10^6/uL (4.00-5.40); WHITE BLOOD COUNT 7.6 10^3/uL (4.0-10.0)
[2019-12-14 14:20] LABS: ALBUMIN 3.9 GM/DL (3.2-5.2); ALT/SGPT 37 U/L (12-78); BILIRUBIN,TOTAL 0.6 MG/DL (0.2-1.0); BLOOD UREA NITROGEN 13 MG/DL (7-18); CALCIUM LEVEL 9.4 MG/DL (8.8-10.2); CARBON DIOXIDE LEVEL 31 MEQ/L (21-32); CHLORIDE LEVEL 104 MEQ/L (98-107); CHOLESTEROL LEVEL 133 MG/DL (<200); CHOLESTEROL RISK RATIO 2.607 (<5); CREATININE FOR GFR 0.86 MG/DL (0.55-1.30); FREE T4 1.22 NG/DL (0.76-1.46); GLOMERULAR FILTRATION RATE > 60.0 (>39); GLUCOSE, FASTING 99 MG/DL (70-100); HDL CHOLESTEROL 51 MG/DL (>40); LDL CHOLESTEROL 64 MG/DL (<100); NON-HDL-C 82 MG/DL; POTASSIUM SERUM 4.2 MEQ/L (3.5-5.1); SODIUM LEVEL 142 MEQ/L (136-145); TOTAL PROTEIN 6.6 GM/DL (6.4-8.2); TRIGLYCERIDES LEVEL 88 MG/DL (<150)
== END ==
LOC: M WUC 08:14
PROVIDERS: ATTEND Physician Assistant
DX: E03.9 Hypothyroidism, unspecified (principal); E78.5 Hyperlipidemia, unspecified

== ENCOUNTER → 2019-12-30 | Outpatient (CLI) | payer MEDICARE ==
--- NOTE | 2019-12-30 10:14 | REP ---
CAROTID ULTRASOUND: Real-time ultrasound evaluation and duplex Doppler interrogation of the extracranial vasculature is performed and compared to the prior study of 07/08/2019. There is again significant plaquing in both carotid bulbs extending into the internal carotid arteries more so on the left than on the right. There is again elevation of the peak systolic velocity in the left internal carotid artery consistent with stenosis 60-79%, unchanged since the prior exam. There is no elevation of velocities on the right consistent with luminal narrowing less than 50%. There is normal direction of flow in both vertebral arteries. RIGHT LEFT Peak systolic velocity ICA 66.7 cm/s 206.3 cm/s End diastolic velocity ICA 23.0 cm/s 44.3 cm/s Peak systolic velocity CCA 95.4 cm/s 79.6 cm/s Peak systolic velocity ECA 62.0 cm/s 219.8 cm/s ICA/CCA ratio 0.70 2.59 IMPRESSION: Significant plaquing in both carotid bulbs and internal carotid arteries much more so on the left than on the right. Luminal narrowing right ICA less than 50%. There are again findings of elevated peak sytolic velocity in the left internal carotid artery consistent with stenosis 60-79% as seen on prior study, unchanged. However, shadowing calcific plaque in the left internal carotid artery somewhat limits evaluation of the underlying ICA lumen and there could be a greater degree of stenosis. Electronically Signed by Phan Edmonds MD 12/30/2019 12:40 P
== END ==
LOC: M RAD 07:50
PROVIDERS: ATTEND Surgery Vascular Surgery
DX: I65.23 Occlusion and stenosis of bilateral carotid arteries (principal)

== ENCOUNTER → 2020-01-06 | Outpatient (REF) | payer MEDICARE | LOC: M LAB REF 17:12 | PROVIDERS: ATTEND Physician Assistant | DX: R35.0 Frequency of micturition (principal) ==

== ENCOUNTER → 2020-07-19 | Outpatient (CLI) | payer MEDICARE ==
[~2020-07-19] MED LIST changes: -AMLO10TA5; +AMLO1TAB24 PO; +AMLO1TAB25; -AMLO5TAB6 PO; +PANT40TA29 PO; -PANT40TA3 PO
--- NOTE | 2020-08-31 09:05 | REP ---
INDICATION: OCCLUSION STENOSIS CAROTID ARTERIES; OCCLUSION / STENOSIS MALLORY CAROTID ARTERIES. COMPARISON: 12/30/2019. TECHNIQUE: Bilateral carotid artery duplex ultrasound for carotid stenosis. FINDINGS: Peak flow velocity analysis: Common carotid arteries: Right: 112 centimeters/second Left 58 centimeters/second. Internal carotid arteries: Right 82.6 centimeters/seconds Left 185 centimeters/seconds Internal carotid diastolic flow velocities: Right 29.1 centimeters/second Left 31.2 centimeters/seconds ICA/CCA ratio: Right 0.79 Left 3.2. External carotid artery flow velocities: Right: 68.6 cm per sec Left 136. cm per sec There is moderate to heavy atheromatous plaque in the bulbs bilaterally extending into the proximal internal carotid arteries and external carotid arteries bilaterally. The peak flow velocity in the left internal carotid artery is slight elevated compatible with 50-69% stenosis. There is antegrade flow in the vertebral arteries bilaterally. IMPRESSION: 50-69% stenosis of the left internal carotid artery <Electronically signed by Phan Ng > 08/31/20 0901
== END ==
LOC: M RAD 10:08
PROVIDERS: ATTEND Physician Assistant
DX: I65.23 Occlusion and stenosis of bilateral carotid arteries (principal)

== ENCOUNTER → 2020-10-17 | Outpatient (CLI) | payer MEDICARE ==
--- NOTE | 2020-10-17 15:46 | DEXAMM ---
INDICATION: M85.80 DISORDER OF BONE. COMPARISON: Comparison DEXA study October 08, 2018 and December 11, 2015.. TECHNIQUE: Bone density was measured using dual-energy x-ray absorptionmetry (DEXA). FINDINGS: AP SPINE L1-L4 BMD 1.424 g/cm2 Young Adult T-Score 1.8 Age Matched Z-Score 3.7. LT FEMUR, TOTAL BMD 0.899 g/cm2 Young Adult T-Score -0.9 Age Matched Z-Score 1.1. LT NECK BMD 0.812 g/cm2 Young Adult T-Score -1.6 Age Matched Z-Score 0.5. RT FEMUR, TOTAL BMD 0.880 g/cm2 Young Adult T-Score -1.0 Age Matched Z-Score 0.9. RT NECK BMD 0.807 g/cm2 Young Adult T-Score -1.7 Age Matched Z-Score 0.4. IMPRESSION: There is normal bone density of the spine. There is low bone density of the left hip. There is low bone density of the right hip. The density of the spine has decreased 2.4% since the initial exam on December 11, 2015. The density of the spine increase 0.2% since most recent exam on October 08, 2018. The density of the left hip has decreased 2.0% since initial exam on December 11, 2015. The density of the left hip has decreased 2.3% since most recent exam on October 08, 2018. The density of the right hip has decreased 4.2% since the initial exam on December 11, 2015. The density of the right hip has decreased 3.0% since the most recent exam on October 08, 2018. FOLLOW-UP: Recommendation for the next bone density exam: 2 years. <Electronically signed by Devendra Lilly > 10/17/20 [id number]
== END ==
LOC: M WHC 10:31
PROVIDERS: ATTEND Physician Assistant
DX: M85.88 Other specified disorders of bone density and structure, other site (principal)

== ENCOUNTER → 2020-12-06 | Outpatient (REF) | payer MEDICARE | LOC: M LAB REF 16:59 | PROVIDERS: ATTEND Family Medicine | DX: R30.0 Dysuria (principal) ==

== ENCOUNTER → 2020-12-07 | Outpatient (CLI) | payer MEDICARE | LOC: M LAB 15:06 | PROVIDERS: ATTEND Family Medicine | DX: R31.9 Hematuria, unspecified (principal) ==

== ENCOUNTER → 2020-12-21 | Outpatient (REF) | payer MEDICARE | LOC: M LAB REF 16:39 | PROVIDERS: ATTEND Family Medicine | DX: N95.2 Postmenopausal atrophic vaginitis (principal) ==

== ENCOUNTER → 2021-01-05 | Outpatient (CLI) | payer MEDICARE ==
[2021-01-05 12:35] LABS: BASO % 0.5 % (0.0-1.0); EOS # 0.3 10^3/uL (0.0-0.5); EOS % 3.8 % (0.0-3.0); HEMATOCRIT 38.7 % (36.0-47.0); HEMOGLOBIN 12.4 g/dl (12.0-15.5); LYMPH # 3.1 10^3/uL (1.5-5.0); LYMPH % 39.1 % (24.0-44.0); MEAN CORPUSCULAR HEMOGLOBIN 30.1 pg (27.0-33.0); MEAN CORPUSCULAR VOLUME 93.9 fl (80.0-96.0); MONO # 0.6 10^3/uL (0.0-0.8); MONO % 8.1 % (2.0-8.0); NEUTROPHILS # 3.8 10^3/uL (1.5-8.5); NEUTROPHILS % 48.2 % (36.0-66.0); PLATELET COUNT, AUTOMATED 261 10^3/uL (150-450); RED BLOOD COUNT 4.12 10^6/uL (4.00-5.40); WHITE BLOOD COUNT 7.9 10^3/uL (4.0-10.0)
[2021-01-05 13:08] LABS: ALT/SGPT 28 U/L (12-78); BILIRUBIN,TOTAL 0.6 MG/DL (0.2-1.0); BLOOD UREA NITROGEN 16 MG/DL (7-18); CALCIUM LEVEL 9.8 MG/DL (8.8-10.2); CARBON DIOXIDE LEVEL 31 MEQ/L (21-32); CHLORIDE LEVEL 106 MEQ/L (98-107); CREATININE FOR GFR 0.78 MG/DL (0.55-1.30); FREE T4 1.11 NG/DL (0.76-1.46); GLOMERULAR FILTRATION RATE > 60.0 (>39); GLUCOSE, FASTING 94 MG/DL (70-100); POTASSIUM SERUM 4.4 MEQ/L (3.5-5.1); SODIUM LEVEL 142 MEQ/L (136-145); THYROID STIMULATING HORMONE 0.509 uIU/ML (0.358-3.740); TOTAL PROTEIN 6.9 GM/DL (6.4-8.2)
== END ==
LOC: M PLALAB 09:21
PROVIDERS: ATTEND Physician Assistant
DX: E03.9 Hypothyroidism, unspecified (principal)

== ENCOUNTER → 2021-03-08 | Outpatient (CLI) | payer MEDICARE ==
[2021-03-08 13:13] LABS: BASO # 0.1 10^3/uL (0.0-0.2); BASO % 0.6 % (0.0-1.0); EOS # 0.2 10^3/uL (0.0-0.5); EOS % 2.7 % (0.0-3.0); HEMATOCRIT 39.6 % (36.0-47.0); HEMOGLOBIN 12.9 g/dl (12.0-15.5); LYMPH # 2.7 10^3/uL (1.5-5.0); LYMPH % 33.8 % (24.0-44.0); MEAN CORPUSCULAR HGB CONC 32.6 g/dl (32.0-36.5); MEAN CORPUSCULAR VOLUME 92.1 fl (80.0-96.0); MONO # 0.7 10^3/uL (0.0-0.8); NEUTROPHILS # 4.2 10^3/uL (1.5-8.5); NEUTROPHILS % 53.5 % (36.0-66.0); PLATELET COUNT, AUTOMATED 293 10^3/uL (150-450); WHITE BLOOD COUNT 7.9 10^3/uL (4.0-10.0)
[2021-03-08 13:47] LABS: ALBUMIN 4.2 GM/DL (3.2-5.2); ALT/SGPT 27 U/L (12-78); BILIRUBIN,TOTAL 0.8 MG/DL (0.2-1.0); BLOOD UREA NITROGEN 18 MG/DL (7-18); CALCIUM LEVEL 9.7 MG/DL (8.8-10.2); CARBON DIOXIDE LEVEL 30 MEQ/L (21-32); CHLORIDE LEVEL 106 MEQ/L (98-107); CHOLESTEROL LEVEL 157 MG/DL (<200); CHOLESTEROL RISK RATIO 2.415 (<5); FREE T4 1.24 NG/DL (0.76-1.46); GLOMERULAR FILTRATION RATE > 60.0 (>39); GLUCOSE, FASTING 96 MG/DL (70-100); HDL CHOLESTEROL 65 MG/DL (>40); LDL CHOLESTEROL 76 MG/DL (<100); NON-HDL-C 92 MG/DL; POTASSIUM SERUM 4.4 MEQ/L (3.5-5.1); SODIUM LEVEL 141 MEQ/L (136-145); TOTAL PROTEIN 7.2 GM/DL (6.4-8.2); TRIGLYCERIDES LEVEL 82 MG/DL (<150)
[2021-03-08 13:50] LABS: TOTAL 25(OH) VITAMIN D 83.3 NG/ML (30.0-100.0)
[2021-03-08 14:08] LABS: HEMOGLOBIN A1c 5.6 %
== END ==
LOC: M PLALAB 09:26
PROVIDERS: ATTEND Family Medicine
DX: E03.9 Hypothyroidism, unspecified (principal); E78.5 Hyperlipidemia, unspecified; I25.83 Coronary atherosclerosis due to lipid rich plaque

== ENCOUNTER → 2021-04-26 | Outpatient (CLI) | payer MEDICARE ==
--- NOTE | 2021-04-26 18:02 | REP ---
INDICATION: STENOSIS COMPARISON: 07/19/2020. TECHNIQUE: Real-time ultrasound evaluation and duplex Doppler interrogation of the extracranial carotid vasculature is performed. FINDINGS: There is moderate diffuse plaquing and narrowing bilaterally, left greater than right. There are findings compatible with stenosis of the left internal carotid artery between 50 and 79% as seen on prior study. There is normal direction of flow in both vertebral arteries. RIGHT LEFT Peak systolic velocity ICA 68.7 cm/s 165.421.1 cm/s End diastolic velocity ICA cm/s 35.3 cm/s Peak systolic velocity CCA 79.3 cm/s 68.4cm/s Peak systolic velocity ECA 49.8 cm/s 144.1 cm/s ICA/CCA ratio 0.87 2.42 IMPRESSION: No change since prior study. Stenosis left ICA 50-79%. <Electronically signed by Phan Edmonds > 04/26/21 1557
== END ==
LOC: M RAD 16:36
PROVIDERS: ATTEND Surgery Vascular Surgery
DX: I65.23 Occlusion and stenosis of bilateral carotid arteries (principal)

== ENCOUNTER → 2021-08-06 | Outpatient (CLI) | payer MEDICARE ==
[2021-08-06 13:45] LABS: BASO # 0.1 10^3/uL (0.0-0.2); BASO % 0.6 % (0.0-1.0); EOS # 0.2 10^3/uL (0.0-0.5); EOS % 2.2 % (0.0-3.0); HEMATOCRIT 39.3 % (36.0-47.0); HEMOGLOBIN 12.6 g/dl (12.0-15.5); LYMPH # 2.5 10^3/uL (1.5-5.0); LYMPH % 27.5 % (24.0-44.0); MEAN CORPUSCULAR HEMOGLOBIN 29.6 pg (27.0-33.0); MEAN CORPUSCULAR HGB CONC 32.1 g/dl (32.0-36.5); MEAN CORPUSCULAR VOLUME 92.5 fl (80.0-96.0); MONO # 0.8 10^3/uL (0.0-0.8); MONO % 8.3 % (2.0-8.0); NEUTROPHILS # 5.5 10^3/uL (1.5-8.5); NEUTROPHILS % 61.3 % (36.0-66.0); PLATELET COUNT, AUTOMATED 311 10^3/uL (150-450); RED BLOOD COUNT 4.25 10^6/uL (4.00-5.40)
[2021-08-06 14:14] LABS: ALBUMIN 4.2 GM/DL (3.2-5.2); BILIRUBIN,TOTAL 0.7 MG/DL (0.2-1.0); CALCIUM LEVEL 9.9 MG/DL (8.8-10.2); CREATININE FOR GFR 0.97 MG/DL (0.55-1.30); FREE T4 1.24 NG/DL (0.76-1.46); POTASSIUM SERUM 4.4 MEQ/L (3.5-5.1); THYROID STIMULATING HORMONE 2.59 uIU/ML (0.358-3.740); TOTAL PROTEIN 7.3 GM/DL (6.4-8.2)
[2021-08-06 14:15] LABS: TOTAL 25(OH) VITAMIN D 83.9 NG/ML (30.0-100.0)
== END ==
LOC: M PLALAB 10:30
PROVIDERS: ATTEND Physician Assistant
DX: E03.9 Hypothyroidism, unspecified (principal); Z79.899 Other long term (current) drug therapy

== ENCOUNTER → 2021-09-10 | Outpatient (CLI) | payer MEDICARE ==
[~2021-09-10] MED LIST changes: +LOSA100T45 PO; -LOSA100T50 PO; +POTA-149 PO; -POTA10TA16 PO
== END ==
LOC: M WHC 09:22
PROVIDERS: ATTEND Family Medicine
DX: Z12.31 Encounter for screening mammogram for malignant neoplasm of breast (principal)

== ENCOUNTER → 2021-12-13 | Outpatient (CLI) | payer MEDICARE ==
[2021-12-13 13:59] LABS: BASO % 0.5 % (0.0-1.0); EOS # 0.3 10^3/uL (0.0-0.5); EOS % 4.1 % (0.0-3.0); HEMATOCRIT 37.9 % (36.0-47.0); HEMOGLOBIN 12.2 g/dl (12.0-15.5); LYMPH # 2.3 10^3/uL (1.5-5.0); LYMPH % 31.9 % (24.0-44.0); MEAN CORPUSCULAR HEMOGLOBIN 29.3 pg (27.0-33.0); MEAN CORPUSCULAR HGB CONC 32.2 g/dl (32.0-36.5); MEAN CORPUSCULAR VOLUME 90.9 fl (80.0-96.0); MONO # 0.6 10^3/uL (0.0-0.8); MONO % 8.7 % (2.0-8.0); NEUTROPHILS % 54.5 % (36.0-66.0); PLATELET COUNT, AUTOMATED 297 10^3/uL (150-450); RED BLOOD COUNT 4.17 10^6/uL (4.00-5.40); WHITE BLOOD COUNT 7.3 10^3/uL (4.0-10.0)
[2021-12-13 14:34] LABS: CHOLESTEROL RISK RATIO 2.808 (<5); FREE T4 1.14 NG/DL (0.76-1.46); THYROID STIMULATING HORMONE 1.03 uIU/ML (0.358-3.740)
== END ==
LOC: M PLALAB 10:21
PROVIDERS: ATTEND Family Medicine
DX: E03.9 Hypothyroidism, unspecified (principal); E78.5 Hyperlipidemia, unspecified

== ENCOUNTER → 2022-02-13 | Outpatient (CLI) | payer MEDICARE | LOC: M PLAIMG 08:43 | PROVIDERS: ATTEND Physician Assistant | DX: M51.34 Other intervertebral disc degeneration, thoracic region (principal); M51.36 Other intervertebral disc degeneration, lumbar region; R91.8 Other nonspecific abnormal finding of lung field; I77.810 Thoracic aortic ectasia ==

== ENCOUNTER → 2022-03-06 | Outpatient (REF) | payer MEDICARE, OTHER ==
[~2022-03-06] MED LIST changes: -AMLO1TAB25; +AMLO1TAB25 PO; +BIOT10TA2 PO; +INDA1.253 PO; -INDA125TA PO; +PRESCAP PO; +VITA100093 PO; +VITMTA PO
== END ==
LOC: M SFHCDERM 16:09
PROVIDERS: ATTEND Nurse Practitioner Family
DX: C44.311 Basal cell carcinoma of skin of nose (principal)

== ENCOUNTER → 2022-03-17 | Outpatient (CLI) | payer MEDICARE | LOC: M LABSMTC 09:59 | PROVIDERS: ATTEND Anesthesiology | DX: Z11.52 Encounter for screening for COVID-19 (principal) ==

== ENCOUNTER 2022-03-20 06:45 | Day surgery (SDC) | payer MEDICARE ==
[~2022-03-20] VITALS: Ht 149.9 cm; Wt 58.0 kg
[~2022-03-20 06:45] MED LIST changes: +NS 1,000 ML IV ONE
[2022-03-20] MEDS ORDERED: LIDOCAINE 2% 100MG/5ML SDV (FOR ANES.) As Ordered ONE (08:19)
[2022-03-20] MEDS ORDERED: propofoL 200 MG/20 ML VIAL As Ordered ONE (08:19)
[2022-03-20] MEDS ORDERED: ePHEDrine SULFATE 25 MG/5 ML(5MG/ML) SYRINGE As Ordered ONE ×2 (08:28→08:37)
[2022-03-20 09:00] VITALS: BP 99/63
== END 2022-03-20 09:12 | disposition home or self-care (01) ==
LOC: M OPP 06:45
PROVIDERS: ATTEND Surgery
DX: Z12.11 Encounter for screening for malignant neoplasm of colon (principal); Z86.010 Personal history of colon polyps; Z80.0 Family history of malignant neoplasm of digestive organs; D12.2 Benign neoplasm of ascending colon; K29.70 Gastritis, unspecified, without bleeding; K22.89 Other specified disease of esophagus; K21.9 Gastro-esophageal reflux disease without esophagitis; K64.0 First degree hemorrhoids; G47.30 Sleep apnea, unspecified; I10 Essential (primary) hypertension; I71.9 Aortic aneurysm of unspecified site, without rupture; I65.22 Occlusion and stenosis of left carotid artery; E03.9 Hypothyroidism, unspecified; Z79.02 Long term (current) use of antithrombotics/antiplatelets; Z79.82 Long term (current) use of aspirin; Z79.899 Other long term (current) drug therapy; Z87.891 Personal history of nicotine dependence

== ENCOUNTER → 2022-06-06 | Outpatient (CLI) | payer MEDICARE ==
[~2022-06-06] MED LIST changes: -NS 1,000 ML IV ONE
== END ==
LOC: M WHC 12:45
PROVIDERS: ATTEND Surgery Vascular Surgery
DX: I65.23 Occlusion and stenosis of bilateral carotid arteries (principal)

== ENCOUNTER → 2022-06-24 | Outpatient (CLI) | payer MEDICARE ==
[2022-06-24 10:44] LABS: BASO # 0.1 10^3/uL (0.0-0.2); BASO % 0.7 % (0.0-1.0); EOS # 0.2 10^3/uL (0.0-0.5); EOS % 2.5 % (0.0-3.0); HEMATOCRIT 37.1 % (36.0-47.0); HEMOGLOBIN 12.1 g/dl (12.0-15.5); LYMPH % 33.1 % (24.0-44.0); MEAN CORPUSCULAR HEMOGLOBIN 29.7 pg (27.0-33.0); MEAN CORPUSCULAR HGB CONC 32.6 g/dl (32.0-36.5); MEAN CORPUSCULAR VOLUME 91.2 fl (80.0-96.0); MONO # 0.8 10^3/uL (0.0-0.8); MONO % 8.5 % (2.0-8.0); NEUTROPHILS # 4.9 10^3/uL (1.5-8.5); PLATELET COUNT, AUTOMATED 280 10^3/uL (150-450); RED BLOOD COUNT 4.07 10^6/uL (4.00-5.40)
[2022-06-24 11:27] LABS: ALT/SGPT 28 U/L (7.0-40); BILIRUBIN,TOTAL 0.6 MG/DL (0.3-1.2); BLOOD UREA NITROGEN 24 MG/DL (9-23); CALCIUM LEVEL 9.4 MG/DL (8.3-10.6); CARBON DIOXIDE LEVEL 29 MMOL/L (20-31); CHLORIDE LEVEL 103 MMOL/L (98-107); CHOLESTEROL LEVEL 123 MG/DL (<200); CHOLESTEROL RISK RATIO 2.93 (<5); CREATININE FOR GFR 0.94 MG/DL (0.55-1.30); FREE T4 1.29 NG/DL (0.89-1.76); GLOMERULAR FILTRATION RATE > 60.0 (>32); GLUCOSE, FASTING 98 MG/DL (74-106); HDL CHOLESTEROL 41.9 MG/DL (>40); LDL CHOLESTEROL 65.7 MG/DL (<100); NON-HDL-C 81 MG/DL; POTASSIUM SERUM 4.5 MMOL/L (3.5-5.1); SODIUM LEVEL 141 MMOL/L (136-145); THYROID STIMULATING HORMONE 1.264 uIU/ML (0.55-4.78); TOTAL PROTEIN 6.7 G/DL (5.7-8.2); TRIGLYCERIDES LEVEL 77 MG/DL (<150)
== END ==
LOC: M PLALAB 09:01
PROVIDERS: ATTEND Family Medicine
DX: E03.9 Hypothyroidism, unspecified (principal); E78.5 Hyperlipidemia, unspecified; I10 Essential (primary) hypertension

== ENCOUNTER → 2022-09-11 | Outpatient (CLI) | payer MEDICARE, OTHER | LOC: M WHC 12:15 | PROVIDERS: ATTEND Nurse Practitioner Adult Health | DX: Z12.31 Encounter for screening mammogram for malignant neoplasm of breast (principal) ==

== ENCOUNTER → 2022-09-24 | Outpatient (CLI) | payer MEDICARE ==
[2022-09-24 11:06] LABS: BASO % 0.4 % (0.0-1.0); EOS # 0.5 10^3/uL (0.0-0.5); EOS % 4.9 % (0.0-3.0); HEMATOCRIT 37.2 % (36.0-47.0); HEMOGLOBIN 11.9 g/dl (12.0-15.5); LYMPH # 2.6 10^3/uL (1.5-5.0); MEAN CORPUSCULAR HEMOGLOBIN 29.5 pg (27.0-33.0); MEAN CORPUSCULAR VOLUME 92.3 fl (80.0-96.0); MONO # 0.9 10^3/uL (0.0-0.8); MONO % 10.3 % (2.0-8.0); NEUTROPHILS # 5.1 10^3/uL (1.5-8.5); NEUTROPHILS % 56.2 % (36.0-66.0); PLATELET COUNT, AUTOMATED 316 10^3/uL (150-450); RED BLOOD COUNT 4.03 10^6/uL (4.00-5.40); WHITE BLOOD COUNT 9.1 10^3/uL (4.0-10.0)
[2022-09-24 11:21] LABS: ALBUMIN 3.7 G/DL (3.2-5.2); BILIRUBIN,TOTAL 0.8 MG/DL (0.3-1.2); CALCIUM LEVEL 9.4 MG/DL (8.3-10.6); CREATININE FOR GFR 1.03 MG/DL (0.55-1.30); GLOMERULAR FILTRATION RATE 54.9 (>32); TOTAL PROTEIN 6.7 G/DL (5.7-8.2)
[2022-09-24 11:23] LABS: FREE T4 1.31 NG/DL (0.89-1.76); THYROID STIMULATING HORMONE 0.634 uIU/ML (0.55-4.78)
== END ==
LOC: M PLALAB 08:39
PROVIDERS: ATTEND Nurse Practitioner Adult Health
DX: E78.5 Hyperlipidemia, unspecified (principal); E03.9 Hypothyroidism, unspecified; G47.33 Obstructive sleep apnea (adult) (pediatric)

== ENCOUNTER → 2022-10-28 | Outpatient (CLI) | payer MEDICARE | LOC: M RAD 12:26 | PROVIDERS: ATTEND Thoracic Surgery (Cardiothoracic Vascular Surgery) | DX: I71.20 Thoracic aortic aneurysm, without rupture, unspecified (principal); J43.9 Emphysema, unspecified; I25.10 Atherosclerotic heart disease of native coronary artery without angina pectoris; K44.9 Diaphragmatic hernia without obstruction or gangrene; M85.88 Other specified disorders of bone density and structure, other site ==

== ENCOUNTER → 2023-01-15 | Outpatient (CLI) | payer MEDICARE ==
[~2023-01-15] MED LIST changes: -LOSA100T45 PO; +LOSA100T46 PO
[2023-01-15 14:28] LABS: BASO % 0.5 % (0.0-1.0); EOS # 0.3 10^3/uL (0.0-0.5); HEMATOCRIT 40.8 % (36.0-47.0); HEMOGLOBIN 13.1 g/dl (12.0-15.5); LYMPH # 3.3 10^3/uL (1.5-5.0); LYMPH % 39.8 % (24.0-44.0); MEAN CORPUSCULAR HEMOGLOBIN 29.7 pg (27.0-33.0); MEAN CORPUSCULAR HGB CONC 32.1 g/dl (32.0-36.5); MEAN CORPUSCULAR VOLUME 92.5 fl (80.0-96.0); MONO # 0.7 10^3/uL (0.0-0.8); MONO % 8.1 % (2.0-8.0); NEUTROPHILS % 48.4 % (36.0-66.0); PLATELET COUNT, AUTOMATED 291 10^3/uL (150-450); RED BLOOD COUNT 4.41 10^6/uL (4.00-5.40); WHITE BLOOD COUNT 8.3 10^3/uL (4.0-10.0)
[2023-01-15 14:30] LABS: ALKALINE PHOSPHATASE 83 U/L (46-116); ALT/SGPT 25 U/L (7.0-40); AST/SGOT 26 U/L (<34); BILIRUBIN,TOTAL 0.7 MG/DL (0.3-1.2); BLOOD UREA NITROGEN 13 MG/DL (9-23); CALCIUM LEVEL 9.4 MG/DL (8.3-10.6); CARBON DIOXIDE LEVEL 31 MMOL/L (20-31); CHLORIDE LEVEL 105 MMOL/L (98-107); CHOLESTEROL LEVEL 126 MG/DL (<200); CHOLESTEROL RISK RATIO 2.47 (<5); CREATININE FOR GFR 0.93 MG/DL (0.55-1.30); GLOMERULAR FILTRATION RATE > 60.0 (>32); GLUCOSE, FASTING 95 MG/DL (74-106); HDL CHOLESTEROL 50.9 MG/DL (>40); LDL CHOLESTEROL 62.5 MG/DL (<100); NON-HDL-C 75.1 MG/DL; POTASSIUM SERUM 4.3 MMOL/L (3.5-5.1); SODIUM LEVEL 141 MMOL/L (136-145); TOTAL PROTEIN 6.5 G/DL (5.7-8.2); TRIGLYCERIDES LEVEL 63 MG/DL (<150)
[2023-01-15 14:32] LABS: FREE T4 1.24 NG/DL (0.89-1.76); THYROID STIMULATING HORMONE 0.824 uIU/ML (0.55-4.78)
== END ==
LOC: M PLALAB 09:57
PROVIDERS: ATTEND Nurse Practitioner Adult Health
DX: I10 Essential (primary) hypertension (principal); E03.9 Hypothyroidism, unspecified; E78.5 Hyperlipidemia, unspecified

== ENCOUNTER → 2023-04-16 | Outpatient (CLI) | payer MEDICARE, MEDICAID ==
[~2023-04-16] MED LIST changes: +MECL-209 PO; -MECL1TAB31 PO
[2023-04-16 08:43] LABS: BASO % 0.5 % (0.0-1.0); EOS # 0.2 10^3/uL (0.0-0.5); EOS % 2.8 % (0.0-3.0); HEMATOCRIT 36.9 % (36.0-47.0); HEMOGLOBIN 11.8 g/dl (12.0-15.5); LYMPH # 2.9 10^3/uL (1.5-5.0); LYMPH % 33.3 % (24.0-44.0); MEAN CORPUSCULAR HEMOGLOBIN 29.6 pg (27.0-33.0); MEAN CORPUSCULAR VOLUME 92.5 fl (80.0-96.0); MONO # 0.7 10^3/uL (0.0-0.8); NEUTROPHILS # 4.8 10^3/uL (1.5-8.5); NEUTROPHILS % 55.3 % (36.0-66.0); PLATELET COUNT, AUTOMATED 237 10^3/uL (150-450); RED BLOOD COUNT 3.99 10^6/uL (4.00-5.40); WHITE BLOOD COUNT 8.6 10^3/uL (4.0-10.0)
[2023-04-16 09:04] LABS: ALBUMIN 3.8 G/DL (3.2-5.2); ALKALINE PHOSPHATASE 78 U/L (46-116); ALT/SGPT 32 U/L (7.0-40); AST/SGOT 37 U/L (<34); BILIRUBIN,TOTAL 0.7 MG/DL (0.3-1.2); BLOOD UREA NITROGEN 21 MG/DL (9-23); CALCIUM LEVEL 9.3 MG/DL (8.3-10.6); CARBON DIOXIDE LEVEL 30 MMOL/L (20-31); CHLORIDE LEVEL 106 MMOL/L (98-107); CHOLESTEROL LEVEL 133 MG/DL (<200); CHOLESTEROL RISK RATIO 2.44 (<5); CREATININE FOR GFR 0.85 MG/DL (0.55-1.30); FREE T4 1.09 NG/DL (0.89-1.76); GLOMERULAR FILTRATION RATE > 60.0 (>32); GLUCOSE, FASTING 93 MG/DL (74-106); HDL CHOLESTEROL 54.3 MG/DL (>40); LDL CHOLESTEROL 68.3 MG/DL (<100); NON-HDL-C 78.7 MG/DL; POTASSIUM SERUM 4.4 MMOL/L (3.5-5.1); SODIUM LEVEL 142 MMOL/L (136-145); THYROID STIMULATING HORMONE 1.414 uIU/ML (0.55-4.78); TOTAL PROTEIN 6.4 G/DL (5.7-8.2); TRIGLYCERIDES LEVEL 52 MG/DL (<150)
== END ==
LOC: M LAB 08:06
PROVIDERS: ATTEND Family Medicine
DX: I10 Essential (primary) hypertension (principal); E78.5 Hyperlipidemia, unspecified; E03.9 Hypothyroidism, unspecified

== ENCOUNTER → 2023-08-12 | Outpatient (REF) | payer MEDICARE, MEDICAID | LOC: M SFHCDERM 16:41 | PROVIDERS: ATTEND Dermatology | DX: L72.0 Epidermal cyst (principal) ==

== ENCOUNTER → 2023-08-12 | Outpatient (CLI) | payer MEDICARE, MEDICAID | LOC: M RAD 14:13 | PROVIDERS: ATTEND Nurse Practitioner Adult Health | DX: I65.23 Occlusion and stenosis of bilateral carotid arteries (principal) ==

== ENCOUNTER → 2023-10-03 | Outpatient (CLI) | payer MEDICARE, MEDICAID | LOC: M WHC 09:23 | PROVIDERS: ATTEND Family Medicine | DX: Z12.31 Encounter for screening mammogram for malignant neoplasm of breast (principal) ==

== ENCOUNTER → 2023-11-11 | Outpatient (CLI) | payer MEDICARE ==
[2023-11-11 14:32] LABS: BLOOD UREA NITROGEN 16 MG/DL (9-23); CREATININE FOR GFR 0.82 MG/DL (0.55-1.30); GLOMERULAR FILTRATION RATE > 60.0 (>32)
== END ==
LOC: M PLALAB 09:12
PROVIDERS: ATTEND Physician Assistant
DX: I65.23 Occlusion and stenosis of bilateral carotid arteries (principal); I83.893 Varicose veins of bilateral lower extremities with other complications

== ENCOUNTER → 2023-11-11 | Outpatient (CLI) | payer MEDICARE | LOC: M PLAIMG 09:04 | PROVIDERS: ATTEND Thoracic Surgery (Cardiothoracic Vascular Surgery) | DX: I71.21 Aneurysm of the ascending aorta, without rupture (principal); I25.10 Atherosclerotic heart disease of native coronary artery without angina pectoris; I70.0 Atherosclerosis of aorta; K44.9 Diaphragmatic hernia without obstruction or gangrene; J47.9 Bronchiectasis, uncomplicated; J98.11 Atelectasis; R91.8 Other nonspecific abnormal finding of lung field; J84.10 Pulmonary fibrosis, unspecified ==

== ENCOUNTER → 2023-11-20 | Outpatient (CLI) | payer MEDICARE ==
[~2023-11-20] MED LIST changes: +ISOVUE-370 76% 100ML VIAL As Ordered ONE
== END ==
LOC: M RAD 12:46
PROVIDERS: ATTEND Physician Assistant
DX: I65.23 Occlusion and stenosis of bilateral carotid arteries (principal); I83.893 Varicose veins of bilateral lower extremities with other complications
CPT/HCPCS: 70498; 93970; Q9967

== ENCOUNTER → 2023-11-26 | Outpatient (CLI) | payer MEDICARE, MEDICAID ==
[~2023-11-26] MED LIST changes: -ISOVUE-370 76% 100ML VIAL As Ordered ONE
== END ==
LOC: M PLAIMG 09:24
PROVIDERS: ATTEND Family Medicine
DX: M53.3 Sacrococcygeal disorders, not elsewhere classified (principal); M47.816 Spondylosis without myelopathy or radiculopathy, lumbar region; M41.9 Scoliosis, unspecified

== ENCOUNTER → 2024-04-26 | Outpatient (CLI) | payer MEDICARE, MEDICAID ==
[2024-04-26 13:35] LABS: BASO # 0.1 10^3/uL (0.0-0.2); BASO % 0.7 % (0.0-1.0); EOS # 0.3 10^3/uL (0.0-0.5); EOS % 4.2 % (0.0-3.0); HEMATOCRIT 38.9 % (36.0-47.0); HEMOGLOBIN 12.7 g/dl (12.0-15.5); LYMPH # 2.7 10^3/uL (1.5-5.0); LYMPH % 38.2 % (24.0-44.0); MEAN CORPUSCULAR HEMOGLOBIN 29.3 pg (27.0-33.0); MEAN CORPUSCULAR HGB CONC 32.6 g/dl (32.0-36.5); MEAN CORPUSCULAR VOLUME 89.8 fl (80.0-96.0); MONO # 0.6 10^3/uL (0.0-0.8); MONO % 8.6 % (2.0-8.0); NEUTROPHILS # 3.4 10^3/uL (1.5-8.5); NEUTROPHILS % 48.2 % (36.0-66.0); PLATELET COUNT, AUTOMATED 296 10^3/uL (150-450); RED BLOOD COUNT 4.33 10^6/uL (4.00-5.40); WHITE BLOOD COUNT 7.1 10^3/uL (4.0-10.0)
[2024-04-26 14:16] LABS: ALBUMIN 3.9 G/DL (3.2-5.2); CALCIUM LEVEL 9.9 MG/DL (8.3-10.6); CHOLESTEROL RISK RATIO 2.82 (<5); CREATININE FOR GFR 1.05 MG/DL (0.55-1.30); FREE T4 1.33 NG/DL (0.89-1.76); GLOMERULAR FILTRATION RATE 53.4 (>32); HDL CHOLESTEROL 47.8 MG/DL (>40); LDL CHOLESTEROL 73.4 MG/DL (<100); NON-HDL-C 87.2 MG/DL; POTASSIUM SERUM 4.2 MMOL/L (3.5-5.1); THYROID STIMULATING HORMONE 0.588 uIU/ML (0.55-4.78); TOTAL PROTEIN 6.8 G/DL (5.7-8.2)
== END ==
LOC: M PLALAB 10:15
PROVIDERS: ATTEND Nurse Practitioner Adult Health
DX: E78.5 Hyperlipidemia, unspecified (principal); E03.9 Hypothyroidism, unspecified; I10 Essential (primary) hypertension

== ENCOUNTER → 2024-09-23 | Outpatient (REF) | payer MEDICARE, MEDICAID | LOC: M SFHCDERM 17:22 | PROVIDERS: ATTEND Nurse Practitioner Family | DX: C44.41 Basal cell carcinoma of skin of scalp and neck (principal) ==

== ENCOUNTER → 2024-10-08 | Outpatient (CLI) | payer MEDICARE, MEDICAID | LOC: M WHC 12:40 | PROVIDERS: ATTEND Nurse Practitioner Adult Health | DX: Z12.31 Encounter for screening mammogram for malignant neoplasm of breast (principal); R92.333 Mammographic heterogeneous density, bilateral breasts ==

== ENCOUNTER 2024-10-19 20:47 | Observation (INO) | payer MEDICARE, MEDICAID ==
[~2024-10-19] VITALS: Ht 149.9 cm; Wt 59.7 kg
[2024-10-19] MEDS: LIDOCAINE 5% (LIDODERM) PATCH TD ONE (21:46)
[2024-10-19] MEDS: METHOCARBAMOL 1,000 MG/10 ML VIAL IV ONE (21:47)
[2024-10-19] MEDS: ACETAMINOPHEN 500 MG TAB PO ONE (21:47)
[2024-10-19 21:55] LABS: BASO % 0.5 % (0.0-1.0); EOS % 0.5 % (0.0-3.0); HEMATOCRIT 35.1 % (36.0-47.0); HEMOGLOBIN 12.1 g/dl (12.0-15.5); LYMPH # 1.6 10^3/uL (1.5-5.0); LYMPH % 19.2 % (24.0-44.0); MEAN CORPUSCULAR HEMOGLOBIN 30.5 pg (27.0-33.0); MEAN CORPUSCULAR HGB CONC 34.5 g/dl (32.0-36.5); MEAN CORPUSCULAR VOLUME 88.4 fl (80.0-96.0); MONO # 0.7 10^3/uL (0.0-0.8); MONO % 7.9 % (2.0-8.0); NEUTROPHILS # 5.9 10^3/uL (1.5-8.5); NEUTROPHILS % 71.7 % (36.0-66.0); PLATELET COUNT, AUTOMATED 261 10^3/uL (150-450); RED BLOOD COUNT 3.97 10^6/uL (4.00-5.40); WHITE BLOOD COUNT 8.3 10^3/uL (4.0-10.0)
[2024-10-19 22:26] LABS: LIPASE 35 U/L (12-53)
[2024-10-19 22:29] LABS: ALBUMIN 4.3 G/DL (3.2-5.2); ALKALINE PHOSPHATASE 72 U/L (35-104); ALT/SGPT 18 U/L (7.0-40); AST/SGOT 29 U/L (<34); BILIRUBIN,DIRECT 0.3 MG/DL (<0.4); BILIRUBIN,TOTAL 0.8 MG/DL (0.3-1.2); BLOOD UREA NITROGEN 25 MG/DL (9-23); CALCIUM LEVEL 9.6 MG/DL (8.3-10.6); CARBON DIOXIDE LEVEL 26 MMOL/L (20-31); CHLORIDE LEVEL 102 MMOL/L (98-107); CK-MB VALUE MASS < 1.0 NG/ML (<3.6); CPK CREATINE PHOSPHOKINASE 109 U/L (34-145); CREATININE FOR GFR 0.79 MG/DL (0.55-1.30); GLOMERULAR FILTRATION RATE > 60.0 (>32); GLUCOSE, FASTING 116 MG/DL (74-106); MB/CK RELATIVE INDEX 0.91 (< OR =4); POTASSIUM SERUM 3.9 MMOL/L (3.5-5.1); SODIUM LEVEL 139 MMOL/L (136-145); TOTAL PROTEIN 7.2 G/DL (5.7-8.2)
[2024-10-19] MEDS ORDERED: ISOVUE-370 76% 100ML VIAL As Ordered ONE (22:59)
[2024-10-19] MEDS: ONDANSETRON 4MG 2ML VIAL IV ONE (23:30)
[2024-10-19] MEDS: MORPHINE 4 MG/ML 1ML VIAL IV ONE (23:30)
[2024-10-20] VITALS (19 sets, daily range): BP systolic 120–128; BP diastolic 60–65; TEMP 97.8–98.7; O2SAT 93–99
[2024-10-20] MEDS ORDERED: HEAL1TAB6 PO (02:09)
[2024-10-20] MEDS ORDERED: AMLO1TAB24 PO (02:09)
[2024-10-20] MEDS ORDERED: RISATAB3 PO (02:09)
[2024-10-20] MEDS ORDERED: D 1010002 PO (02:09)
[2024-10-20] MEDS ORDERED: POTA-141 PO (02:09)
[2024-10-20] MEDS ORDERED: COLL1POW PO (02:09)
[2024-10-20] MEDS ORDERED: B-12100021 PO (02:09)
[2024-10-20] MEDS ORDERED: ROSU20TA86 PO (02:09)
[2024-10-20] MEDS ORDERED: PRESCAP4 PO (02:09)
[2024-10-20] MEDS ORDERED: IRBE150T27 PO (02:09)
[2024-10-20] MEDS ORDERED: HOME MED LIST COMPLETE! XX SCH (02:10)
[2024-10-20 02:18] LABS: CK-MB VALUE MASS < 1.0 NG/ML (<3.6)
[2024-10-20 02:19] LABS: CPK CREATINE PHOSPHOKINASE 98 U/L (34-145); MB/CK RELATIVE INDEX 1.02 (< OR =4)
[2024-10-20] MEDS ORDERED: MAALOX 30 ML SUSP *UDC PO PRN (02:55)
[2024-10-20] MEDS ORDERED: MOM 30ML SUSPENSION UDC PO PRN (02:55)
[2024-10-20] MEDS: KETOROLAC 30 MG/ML 1ML VIAL IV PRN (03:16)
[2024-10-20] MEDS: methocarbamoL 500 MG TAB PO PRN (03:17)
[2024-10-20] MEDS: ACETAMINOPHEN 325 MG TAB PO PRN (03:17)
[2024-10-20] MEDS: GABAPENTIN 100 MG CAP PO SCH ×2 (03:17→20:25)
[2024-10-20] MEDS: valACYclovir HCL 500 MG TAB PO SCH (03:29)
[2024-10-20] MEDS ORDERED: PANTOPRAZOLE 40MG TAB (PROTONIX) PO PRN (04:40)
[2024-10-20] MEDS: LEVOTHYROXINE 50MCG TABLET (0.05MG) PO SCH (06:24)
[2024-10-20] MEDS: HEPARIN SOD (PORCINE) 5000UNITS/ML 1ML VIAL/SYRINGE SC SCH (08:16)
[2024-10-20] MEDS: amLODIPine 5 MG TAB PO SCH (08:16)
[2024-10-20] MEDS: DOCUSATE SODIUM 100MG CAPSULE PO SCH (08:16)
[2024-10-20] MEDS: methylPREDNISolone 40MG 1ML VIAL IV ONE (09:23)
[2024-10-20] MEDS: MORPHINE 2 MG/ML 1ML VIAL IV ONE (10:17)
[2024-10-20] MEDS: IRBESARTAN 150MG TAB PO SCH (20:24)
[2024-10-20] MEDS: ASPIRIN 81MG ENTERIC TABLET PO SCH (20:25)
[2024-10-20] MEDS: ROSUVASTATIN 10 MG TAB (CRESTOR) PO SCH (20:25)
[2024-10-20] MEDS: LIDOCAINE 5% (LIDODERM) PATCH TD SCH (20:30)
[2024-10-21] VITALS: BP 122/64; TEMP 97.8; O2SAT 98
[2024-10-21 04:00] VITALS: BP 122/64; TEMP 97.9; O2SAT 98
[2024-10-21 04:19] VITALS: BP 140/71; TEMP 97.1; O2SAT 99
[2024-10-21] MEDS: LEVOTHYROXINE 75MCG TABLET (0.075MG) PO SCH (05:46)
[2024-10-21 07:49] LABS: HEMATOCRIT 36.5 % (36.0-47.0); HEMOGLOBIN 12.2 g/dl (12.0-15.5); MEAN CORPUSCULAR HEMOGLOBIN 29.7 pg (27.0-33.0); MEAN CORPUSCULAR HGB CONC 33.4 g/dl (32.0-36.5); MEAN CORPUSCULAR VOLUME 88.8 fl (80.0-96.0); PLATELET COUNT, AUTOMATED 269 10^3/uL (150-450); RED BLOOD COUNT 4.11 10^6/uL (4.00-5.40); WHITE BLOOD COUNT 9.2 10^3/uL (4.0-10.0)
[2024-10-21 08:00] VITALS: BP 127/62; TEMP 97.6; O2SAT 99
[2024-10-21 08:29] LABS: ALBUMIN 3.8 G/DL (3.2-5.2); ALKALINE PHOSPHATASE 65 U/L (35-104); ALT/SGPT 18 U/L (7.0-40); AST/SGOT 20 U/L (<34); BILIRUBIN,TOTAL 0.5 MG/DL (0.3-1.2); BLOOD UREA NITROGEN 16 MG/DL (9-23); CALCIUM LEVEL 9.6 MG/DL (8.3-10.6); CARBON DIOXIDE LEVEL 29 MMOL/L (20-31); CHLORIDE LEVEL 104 MMOL/L (98-107); CREATININE FOR GFR 0.87 MG/DL (0.55-1.30); GLOMERULAR FILTRATION RATE > 60.0 (>32); GLUCOSE, FASTING 96 MG/DL (74-106); MAGNESIUM LEVEL 2.3 MG/DL (1.8-2.4); SODIUM LEVEL 140 MMOL/L (136-145); TOTAL PROTEIN 6.6 G/DL (5.7-8.2)
[2024-10-21 09:11] VITALS: BP 140/71
[2024-10-21] MEDS ORDERED: ACET32TAB PO (10:15)
[2024-10-21] MEDS ORDERED: GABA-1171 PO (10:15)
[2024-10-21] MEDS ORDERED: COLA100C5 PO (10:15)
== END 2024-10-21 13:35 | disposition home or self-care (01) ==
LOC: M ED 20:47 → M ED INP 20:48 → M PCU 10-20 04:32
PROVIDERS: ADMIT Student in an Organized Health Care Education/Training Program; ATTEND Student in an Organized Health Care Education/Training Program
DX: M25.511 Pain in right shoulder (principal); M51.34 Other intervertebral disc degeneration, thoracic region; I25.10 Atherosclerotic heart disease of native coronary artery without angina pectoris; I65.23 Occlusion and stenosis of bilateral carotid arteries; I10 Essential (primary) hypertension; K21.9 Gastro-esophageal reflux disease without esophagitis; G47.33 Obstructive sleep apnea (adult) (pediatric); Z79.899 Other long term (current) drug therapy; G43.909 Migraine, unspecified, not intractable, without status migrainosus; E78.5 Hyperlipidemia, unspecified; Z91.81 History of falling; R91.1 Solitary pulmonary nodule; E03.9 Hypothyroidism, unspecified; I71.21 Aneurysm of the ascending aorta, without rupture; J47.9 Bronchiectasis, uncomplicated
CPT/HCPCS: 36415; 71046; 71100; 71275; 73010; 73030; 74174; 80048; 80053; 80076; 82550; 82553; 83690; 83735; 84484; 85025; 85027; 93005; 96374; 96375; 96376; 97165; 97535; 99284; G0378; J1885; J2405; J2800; J2919; Q9967